=== PATIENT | male | born 1970 | race Caucasian/White ===

== ENCOUNTER 2021-05-02 14:41 | Emergency (ER) | payer BC, SELFPAY ==
--- NOTE | 2021-05-02 14:50 | XR_ITS ---
WS: [id number] Portable AP upright chest, 05/02/2021 Clinical Data: chest pain Comparison: None. Findings: No nodules, masses or effusions are seen. The heart is normal. The pulmonary vascularity is not increased. No pneumonia or pneumothorax is seen. There is a dextroscoliosis of the thoracic spin e. XR/XR chest 1V portable [id number] Impression: Negative chest.
--- NOTE | 2021-05-02 14:50 | ECG_ITS ---
[facility] Test Date: 2021-05-02 Pat Name: Yusef Ware Jr Department: Room: Gender: Male Marketing Admin: : 1970 Requested By: Charley Vigil Order Number: [id number] Rishi MD: Jayne Coyle M.D. Measurements Intervals [place] Rate: 105 P: 59 VA: 187 QRS: 81 QRSD: 106 T: 52 QT: 333 QTc: 441 Interpretive Statements SINUS TACHYCARDIA POSSIBLE LEFT ATRIAL ENLARGEMENT [-0.1mV P-WAVE IN V1/V2] ABNORMAL RHYTHM ECG No previous ECG available for comparison Electronically Signed On 05-02-2021 20:43:51 FILLING MACHINE OPERATOR by Jayne Coyle M.D. [id number]
[2021-05-02 14:52] VITALS: BP 121/86; PULSE 104; RESP 18; TEMP 36.8; O2SAT 100; BMI 27.1
[2021-05-02 17:43] VITALS: BP 143/98; PULSE 94; RESP 14; O2SAT 98
[2021-05-02 17:58] VITALS: BP 143/98; PULSE 91; O2SAT 96
[2021-05-02 18:04] LABS: Basophils % 0.2 %; Hematocrit 52.4 % (42.0-52.0); Hemoglobin 18.9 g/dL (11.7-16.6); Lymphocytes # 1.3 10^3/uL (0.8-4.8); Lymphocytes % 25.9 %; Mean Corpuscular HGB Conc 36.1 g/dL (30.0-36.0); Mean Corpuscular Hemoglobin 31.1 pg (28.0-34.0); Mean Corpuscular Volume 86.2 fl (80-94); Mean Platelet Volume 10.9 fL (7.4-10.4); Monocytes # 0.5 10^3/uL (0.2-0.9); Monocytes % 11.2 %; Neutrophils # 3.01 10^3/uL (1.8-7.7); Neutrophils % 62.5 %; Nucleated Red Blood Cells % 0 %; Platelet Count 175 10^3/cmm (130-400); Red Blood Count 6.08 10^6/uL (4.1-5.3); Red Cell Distribution Width 11.5 % (12.1-15.1); White Blood Count 4.8 10^3/uL (4.0-10.0)
--- NOTE | 2021-05-02 18:14 | W.ED.CHESTPA ---
HPI - Chest Pain General: Chief Complaint: Chest Pain Stated Complaint: CP RADIATING DOWN L ARM:SENT BY FEROZ FORTE Time Seen by Provider: 05/02/21 17:40 Source: patient Mode of arrival: ambulatory Limitations: no limitations History of Present Illness: HPI narrative: 50-year-old male who states that he has been having a sharp pain left side of his chest throughout the day he states it radiates down his left arm. He states he also has shingles to the left side of his chest recently he is unsure if this was causing his pain. No history of heart disease. States he does have some high blood pressure does not smoke no family history of heart disease denies any dyspnea denies any diaphoresis or nausea denies any worsening improving factors. Associated symptoms: Deny abdominal pain, dyspnea, fever(s), nausea or vomiting Review of Systems Const: Denies: fever(s), chills, body aches or change in appetite Eyes: Denies: blurry vision or eye discomfort ENMT: Denies: throat pain or dental pain Card: Reports: chest pain Resp: Denies: dyspnea GI: Denies: abdominal pain, nausea, vomiting or diarrhea : Denies: dysuria Musc: Denies: neck pain or back pain Skin/Breast: Denies: rash Neuro: Denies: headache(s) Psych: Denies: depression Rufino/Lymph: Denies: easy bruising All/Imm: Denies: urticaria PFSH ED PFSH: Medical History Diabetes Erectile dysfunction HTN (hypertension) Hypercholesterolemia Peyronie's disease Family History Father , AT AGE 46 Myocardial infarction Social History Smoking and tobacco status: never smoked Alcohol intake: never Marital status: Current occupational status: employed History of recent travel: No Physical Exam Const: COMMON NORMALS: no acute distress, patient oriented x3 and healthy appearing HENMT: COMMON NORMALS: normocephalic and atraumatic HEAD & SCALP: normocephalic and atraumatic Eye: COMMON NORMALS: Equal, round and reactive pupils present and EOMs intact bilaterally PUPIL: Yes Equal, round and reactive pupils present Neck/C-Spine: COMMON NORMALS: full ROM and supple Chest: OTHER: Shingles to left side of the chest Resp: COMMON NORMALS: normal respiratory effort, No retractions, No use of accessory muscles and clear to auscultation bilaterally AUSCULTATION: clear to auscultation bilaterally Cardio: COMMON NORMALS: regular rate, regular rhythm and No murmurs present (Cardio) RATE: regular rate RHYTHM: regular rhythm GI: COMMON NORMALS: Normal to inspection, nondistended, normoactive bowel sounds present, Soft to palpation, non-tender and no masses PALPATION: Yes Soft to palpation Extremity: COMMON NORMALS: normal to inspection and full ROM Neuro: COMMON NORMALS: patient oriented x3, moves all extremities and no focal motor deficits Psych: COMMON NORMALS: mental status grossly normal, Normal thought process present and cooperative THOUGHT PROCESS: Normal thought process present Skin: COMMON NORMALS: no rashes or lesions noted and no wounds GENERAL SKIN EXAM: no rashes or lesions noted Course Vital Signs: Vital signs: Vital Signs Temperature 98.2 F 05/02/21 14:52 Pulse Rate 91 05/02/21 17:58 Respiratory Rate 14 05/02/21 17:43 Blood Pressure 100/72 05/02/21 20:33 Pulse Oximetry 96 05/02/21 17:58 MDM - Chest Pain MDM Narrative: Medical decision making narrative: Patient presents here with chest pain atypical in nature he does have shingles to the left side of his chest could be causing his pain troponins and x-ray here are normal no signs of acute coronary syndrome or pulmonary embolism he is stable for discharge is to follow-up with PCP and return if worsening he understands agrees to plan. Lab Data: Labs: Lab Results 05/02/21 05/02/21 05/02/21 17:55 17:55 17:55 WBC 4.8 10^3/uL 10^3/ uL (4.0-10.0) RBC 6.08 10^6/uL H 10 ^6/uL (4.1-5.3) Hgb 18.9 g/dL H g/dL (11.7-16.6) Hct 52.4 % H % (42.0-52.0) MCV 86.2 fl fl (80-94) MCH 31.1 pg pg (28.0-34.0) MCHC 36.1 g/dL H g/dL (30.0-36.0) RDW 11.5 % L % (12.1-15.1) Plt Count 175 10^3/cmm 10^3 /cmm (130-400) MPV 10.9 fL H fL (7.4-10.4) Neut % (Auto) 62.5 % % Lymph % (Auto) 25.9 % % Elmore % (Auto) 11.2 % % Eos % (Auto) 0.0 % % Baso % (Auto) 0.2 % % Neut # (Auto) 3.01 10^3/uL 10^3 /uL (1.8-7.7) Lymph # (Auto) 1.3 10^3/uL 10^3/ uL (0.8-4.8) Elmore # (Auto) 0.5 10^3/uL 10^3/ uL (0.2-0.9) Eos # (Auto) 0.0 10^3/uL 10^3/ uL (0.0-0.8) Baso # (Auto) 0.0 10^3/uL 10^3/ uL (0.0-0.1) Nucleated RBC % (a uto) 0 % % Nucleated RBCs # 0.0 /100WBC /100W BC Sodium 133 mmol/L L mmol /L (136-145) Potassium 3.9 mmol/L mmol/L (3.5-5.1) Chloride 91 mmol/L L mmol/ L (98-107) Carbon Dioxide 26 mmol/L mmol/L (22-29) Anion Gap 19.9 H (5-19) BUN 16 mg/dL mg/dL (6-20) Creatinine 0.7 mg/dL mg/dL (0.7-1.2) GFR Calculation 120.4 mL/min mL/m in (90-130) Glucose 105 mg/dL mg/dL (65-115) Calculated Osmolal ity 278 mOsm/kg L mOs m/kg (285-295) Calcium 9.6 mg/dL mg/dL (8.5-10.5) Total Bilirubin 0.8 mg/dL mg/dL (0.15-1.2) AST 30 U/L U/L (0-40) ALT 30 U/L U/L (0-41) Alkaline Phosphata se 96 IU/L IU/L (40-130) Troponin T Baselin e 8 ng/L ng/L (0-15) Troponin T 120 [place] Delta Troponin T Total Protein 7.8 g/dL g/dL (6.6-8.7) Albumin 4.9 g/dL g/dL (3.5-5.2) Globulin 2.9 g/dL g/dL (1.3-4.6) 05/02/21 20:05 WBC RBC Hgb Hct MCV MCH MCHC RDW Plt Count MPV Neut % (Auto) Lymph % (Auto) [place] % (Auto) Eos % (Auto) Baso % (Auto) Neut # (Auto) Lymph # (Auto) [place] # (Auto) Eos # (Auto) Baso # (Auto) Nucleated RBC % (a uto) Nucleated RBCs # Sodium Potassium Chloride Carbon Dioxide Anion Gap BUN Creatinine GFR Calculation Glucose Calculated Osmolal ity Calcium Total Bilirubin AST ALT Alkaline Phosphata se Troponin T Baselin e Troponin T 120 [place] 7.17 ng/L ng/L (0-15) Delta Troponin T -0.83 ABS# L ABS# (0-10) Total Protein Albumin Globulin Imaging Data^: CXR: Attestation: I personally reviewed and interpreted this imaging study as follows: Radiologist's impression: [address] [address] XRay Report Signed Patient: Yusef Ware Jr Unit #: [id number] : 1970 Age/Sex: 50 / M ADM Date: 05/02/21 Loc: ER Room/Bed: Attending Dr: Ordering Provider/Ordering MD: Charley Vigil Date of Service: 05/02/21 Procedure(s): XR chest 1V portable [id number] Accession Number(s): [id number] Report Number: [id number] WS: [id number] Portable AP upright chest, 05/02/2021 Clinical Data: chest pain Comparison: None. Findings: No nodules, masses or effusions are seen. The heart is normal. The pulmonary vascularity is not increased. No pneumonia or pneumothorax is seen. There is a dextroscoliosis of the thoracic spine. XR/XR chest 1V portable [id number] Impression: Negative chest. Dictated By: Dara Sam MD Signed By: Dara Sam MD Signed Date/Time: 05/02/211517 DD/ 16 EKG Data^: EKG 1: Attestation: I personally reviewed and interpreted this EKG as follows: EKG interpretation date: 05/02/21 EKG interpretation time: 15:03 Interpretation: sinus tach hr [address] or t wave abnormalities qrs 106 qtc 394 EKG 2: Attestation: I personally reviewed and interpreted this EKG as follows: EKG interpretation date: 05/30/21 EKG interpretation time: 20:10 Interpretation: nsr hr [address] or t wave abnormalities qrs 94 qtc 406 Discharge Plan Discharge Patient Disposition: Home Clinical Impression: Shingles Chest pain Qualifiers: Chest pain type: unspecified Qualified Code(s): R07.9 - Chest pain, unspecified Condition: Stable Prescriptions: New hydrocodone-acetaminophen 5-325 mg tablet 1 tab PO Q6H PRN (Reason: pain) Qty: 14 RF: 0 No Action sildenafil 100 mg tablet 100 mg PO DAILY PRN (Reason: sexual activity) Qty: 20 RF: 12 pentoxifylline 400 mg tablet extended release 400 mg PO TID Qty: 90 RF: 12 metformin 500 mg tablet 1,000 mg PO BID RF: 0 simvastatin 40 mg tablet 40 mg PO DAILY RF: 0 Invokana 100 mg tablet 100 mg PO DAILY RF: 0 glyburide 5 mg tablet 5 mg PO DAILY RF: 0 lisinopril-hydrochlorothiazide 10-12.5 mg tablet 1 tab PO DAILY RF: 0 omega 2-ggx-lzl-fish oil [Fish Oil] 1,200 (144-216) mg capsule PO RF: 0 cinnamon bark [Cinnamon] 500 mg capsule 500 mg PO DAILY RF: 0 aspirin [Adult Aspirin Regimen] 81 mg tablet,delayed release (DR/EC) 81 mg PO DAILY RF: 0 Discharge Orders: Discharge ED (Routine); Ordered 05/02/21 Ordered By: Vijaya Carvajal Referrals: Dara Pepe FNP [Primary Care Provider] - 1-3 days Discharge Diet: Advance as tolerated Discharge Activity: Resume usual activity Patient Instructions: Chest Pain (ED), Opioid Safety Coding Level of Care Code ED Forest Firefighter for Chg Fwd Exam Comprehensive
[2021-05-02 18:26] LABS: Troponin(5th) Baseline 8 ng/L (0-15)
[2021-05-02 18:31] LABS: Alanine Aminotransferase 30 U/L (0-41); Albumin Level 4.9 g/dL (3.5-5.2); Alkaline Phosphatase 96 IU/L (40-130); Blood Urea Nitrogen 16 mg/dL (6-20); Calcium 9.6 mg/dL (8.5-10.5); Carbon Dioxide 26 mmol/L (22-29); Chloride 91 mmol/L (98-107); Globulin 2.9 g/dL (1.3-4.6); Glomerular Filtration Rate 120.4 mL/min (90-130); Glucose 105 mg/dL (65-115); Osmolality Calculated 278 mOsm/kg (285-295); Sodium 133 mmol/L (136-145); Total Bilirubin 0.8 mg/dL (0.15-1.2); Total Protein 7.8 g/dL (6.6-8.7)
[2021-05-02 18:36] LABS: Anion Gap 19.9 (5-19); Aspartate Amino Transferase 30 U/L (0-40); Potassium 3.9 mmol/L (3.5-5.1)
[2021-05-02 18:42] LABS: Slide Review Slide Review Perform
[2021-05-02 20:33] VITALS: BP 100/72
--- NOTE | 2021-05-02 20:50 | ECG_ITS ---
[facility] Test Date: 2021-05-02 Pat Name: Yusef Ware Jr Department: Room: Gender: Male Tableau Architect: : 1970 Requested By: Charley Vigil Order Number: [id number] Rishi MD: Jayne Coyle M.D. Measurements Intervals [place] Rate: 85 P: 54 AK: 203 QRS: 76 QRSD: 94 T: 49 QT: 364 QTc: 434 Interpretive Statements SINUS RHYTHM Compared to ECG 05/02/2021 15:03:18 Sinus tachycardia no longer present Electronically Signed On 05-02-2021 20:52:11 BACCARAT MANAGER by Jayne Coyle M.D. [id number] f
[2021-05-02 21:01] LABS: Troponin 5 2HR 7.17 ng/L (0-15); Troponin 5 2HR Delta -0.83 ABS# (0-10)
[2021-05-02 21:31] VITALS: BP 100/72; PULSE 80; RESP 14; O2SAT 98
== END 2021-05-02 21:42 | disposition home or self-care (01) ==
PROVIDERS: Physician Assistant; Emergency Provider Emergency Medicine; PCP Nurse Practitioner Family
DX: R07.9 Chest pain, unspecified (principal); B02.9 Zoster without complications; E11.9 Type 2 diabetes mellitus without complications; I10 Essential (primary) hypertension; E78.00 Pure hypercholesterolemia, unspecified
CPT/HCPCS: 71045; 80053; 84484; 85025; 93005; 99284

== ENCOUNTER 2021-06-13 08:53 | Outpatient (CLI) | payer BC, SELFPAY ==
[2021-06-13 09:46] VITALS: BMI 27.3
--- NOTE | 2021-06-13 09:49 | ECG_ITS ---
[facility] Test Date: 2021-06-13 Pat Name: Yusef Ware Jr Department: Room: Gender: Male Creative Art Director: Rafaela Smith : 1970 Requested By: Dara Pepe Order Number: [id number] Risih MD: Bj Marks M.D. Interpretive Statements NAME OF STUDY: LEXISCAN SESTAMIBI STRESS TEST INDICATION: [strong family histroy of cad, ] Procedure: At the baseline, the blood pressure was 123/83 mmHg with a heart rate of 65 bpm. The electrocardiogram showed normal sinus rhythm, normal axis with normal ST and T's. The Lexiscan was infused over a period of 20 seconds. A total of 0.4 mg of Lexiscan was infused. The stress phase was continued for a total of 5 minutes. Heart rate was at the end of stress phase was 81 bpm and a blood pressure of 117/75 mmHg. The EKG at the peak infusion revealed since normal sinus rhythm with no significant ST-T wave changes. Sestamibi was injected 20 seconds after the Lexiscan infusion. Blood pressure at the end of recovery phase was 114/76 mmHg with a heart rate of 79 bpm. Conclusion: 1. Normal EKG response to Lexiscan infusion 2. No Lexiscan induced chest pain or cardiac arrhythmia. 3. Normal blood pressure and heart rate response. 4. Sestamibi/sestamibi perfusion scan pending; see separate report. Electronically Signed On 06-16-2021 12:54:59 SHIPSMITH by Bj Marks M.D. [id number]
--- NOTE | 2021-06-13 09:50 | NMCV_ITS ---
NM kelvin perf SPECT r/s* [id number] Yusef Ware Jr Age: 50 Gender: M : 1970 Exam Date: 06/13/2021 09:50 Ordering Phys: Dara PepeP RECEIVER DISPATCHER Technologist: CLOVER Farley Exam Location: [facility] Indications: HISTORY OF CAD STRESS TEST Please see separate stress test report in [facility] for full findings IMAGE PROTOCOL Rest/Stress 1 Lexiscan Day Radiopharmaceutical Dose (mCi) Administration Site Administered by Rest: Tc-99m 11.0 IV CLOVER Choudhary Sestamibi Stress:Tc-99m 32.8 IV CLOVER Choudhary Sestamibi Rest: 13-Jun-2021 60 Discovery 630 Stress: 13-Jun-2021 30 Discovery 630 0.4mg Lexiscan. Images obtained in supine and prone position. SPECT RESULTS Technical Quality: Uninterpretable Raw Data Analysis: Normal Image Corrections: No attenuation or motion correction applied Summed Stress Score: 0 Summed Rest Score: 0 Summed Difference Score: 0 PERFUSION FINDINGS SPECT images demonstrate homogeneous tracer distribution throughout the myocardium. FUNCTIONAL RESULTS (calculated via Gated SPECT) Stress Image LV EF (%): 60 Stress EDV (mL):115 TID: 0.96 Stress ESV (mL):46 FUNCTIONAL FINDINGS: There is normal left ventricular systolic function. IMPRESSIONS 1. Normal myocardial perfusion imaging with no evidence of ischemia 2. LV systolic function is normal Bj Marks MD (Electronically Signed) Final Date: 17 June 2021 17:47 S
[2021-06-13] MEDS: regadenoson 0.4 Mg/5 ml Syringe IVP (11:37)
[2021-06-13 11:38] VITALS: BP 114/76; PULSE 78
== END 2021-06-13 08:54 | disposition home or self-care (01) ==
LOC: CDL 08:56
PROVIDERS: PCP Nurse Practitioner Family; Visit Provider Nurse Practitioner Family
DX: I25.10 Atherosclerotic heart disease of native coronary artery without angina pectoris (principal)
CPT/HCPCS: 78452; 93017; A9500; J2785

== ENCOUNTER → 2021-12-31 15:57 | Outpatient (BNVA) | payer BC, SELFPAY | PROVIDERS: PCP Nurse Practitioner Family; Visit Provider Urology | DX: N52.9 Male erectile dysfunction, unspecified (principal); N52.1 Erectile dysfunction due to diseases classified elsewhere; N48.6 Induration penis plastica | CPT/HCPCS: 81003 ==

== ENCOUNTER 2023-08-13 11:29 | Outpatient (RCR) | payer BC, SELFPAY | END 2023-08-21 23:59 | disposition home or self-care (01) | LOC: SPT 11:29 | PROVIDERS: PCP Nurse Practitioner Family; Visit Provider Physician Assistant Surgical | DX: S52.92XD Unspecified fracture of left forearm, subsequent encounter for closed fracture with routine healing (principal); S32.009D Unspecified fracture of unspecified lumbar vertebra, subsequent encounter for fracture with routine healing; S06.0XAD Concussion with loss of consciousness status unknown, subsequent encounter; X58.XXXD Exposure to other specified factors, subsequent encounter | CPT/HCPCS: 97110; 97161 ==

== ENCOUNTER 2023-08-13 11:38 | Outpatient (RCR) | payer BC, SELFPAY | END 2023-08-21 23:59 | disposition home or self-care (01) | LOC: SOT 11:38 | PROVIDERS: PCP Nurse Practitioner Family; Visit Provider Physician Assistant Surgical | DX: S32.9XXD Fracture of unspecified parts of lumbosacral spine and pelvis, subsequent encounter for fracture with routine healing (principal); S06.0XAD Concussion with loss of consciousness status unknown, subsequent encounter; S52.92XD Unspecified fracture of left forearm, subsequent encounter for closed fracture with routine healing; S52.202D Unspecified fracture of shaft of left ulna, subsequent encounter for closed fracture with routine healing; X58.XXXD Exposure to other specified factors, subsequent encounter | CPT/HCPCS: 97110; 97166; 97530 ==

== ENCOUNTER 2023-08-13 11:40 | Outpatient (RCR) | payer BC, SELFPAY | END 2023-08-21 23:59 | disposition home or self-care (01) | LOC: SST 11:40 | PROVIDERS: PCP Nurse Practitioner Family; Visit Provider Physician Assistant Surgical | DX: S06.0XAD Concussion with loss of consciousness status unknown, subsequent encounter (principal); X58.XXXD Exposure to other specified factors, subsequent encounter | CPT/HCPCS: 92507 ==

== ENCOUNTER 2023-08-22 06:00 | Outpatient (RCR) | payer BC, SELFPAY | END 2023-09-21 23:59 | disposition home or self-care (01) | LOC: SPT 06:00 | PROVIDERS: PCP Nurse Practitioner Family; Visit Provider Physician Assistant Surgical | DX: S52.92XD Unspecified fracture of left forearm, subsequent encounter for closed fracture with routine healing (principal); S06.0XAD Concussion with loss of consciousness status unknown, subsequent encounter; S32.9XXD Fracture of unspecified parts of lumbosacral spine and pelvis, subsequent encounter for fracture with routine healing; X58.XXXD Exposure to other specified factors, subsequent encounter | CPT/HCPCS: 97110 ==

== ENCOUNTER 2023-09-22 06:00 | Outpatient (RCR) | payer BC, SELFPAY | END 2023-10-21 23:59 | disposition home or self-care (01) | LOC: SPT 06:00 | PROVIDERS: PCP Nurse Practitioner Family; Visit Provider Physician Assistant Surgical | DX: S52.92XD Unspecified fracture of left forearm, subsequent encounter for closed fracture with routine healing (principal); S06.0XAD Concussion with loss of consciousness status unknown, subsequent encounter; S32.9XXD Fracture of unspecified parts of lumbosacral spine and pelvis, subsequent encounter for fracture with routine healing; X58.XXXD Exposure to other specified factors, subsequent encounter | CPT/HCPCS: 97110 ==

== ENCOUNTER 2023-10-22 06:00 | Outpatient (RCR) | payer BC, SELFPAY | END 2023-11-21 23:59 | disposition home or self-care (01) | LOC: SPT 06:00 | PROVIDERS: PCP Nurse Practitioner Family; Visit Provider Physician Assistant Surgical | DX: S52.92XD Unspecified fracture of left forearm, subsequent encounter for closed fracture with routine healing (principal); S06.0XAD Concussion with loss of consciousness status unknown, subsequent encounter; S32.9XXD Fracture of unspecified parts of lumbosacral spine and pelvis, subsequent encounter for fracture with routine healing; X58.XXXD Exposure to other specified factors, subsequent encounter | CPT/HCPCS: 97110 ==

== ENCOUNTER 2023-10-30 15:33 | Emergency (ER) | payer BC, MEDICAID, SELFPAY ==
--- NOTE | 2023-10-30 15:36 | USR_ITS ---
PROCEDURE INFORMATION: Exam: US Duplex Left Lower Extremity Veins, Limited Exam date and time: 10/30/2023 4:23 PM Age: 52 years old Clinical indication: Pain; Leg, lower; Left; Prior surgery; Surgery date: <1 month; Surgery type: Unknown; Additional info: Leg pain, concern for dvt TECHNIQUE: Imaging protocol: Real-time duplex ultrasound of the left extremity with 2-D foremna scale, color Doppler flow and spectral waveform analysis including responses to compression and other maneuvers (when performed) with image documentation. Limited exam focused on the left lower extremity veins. COMPARISON: No relevant prior studies available. FINDINGS: Left deep veins: Unremarkable. The common femoral, femoral, proximal profunda femoral, popliteal, posterior tibial and peroneal veins are patent without thrombus. Normal compressibility, augmentation response and Doppler waveforms. Superficial veins: Greater saphenous vein at the saphenofemoral junction is patent without thrombus. Soft tissues: Unremarkable. US/CV venous duplex [facility] [id number] IMPRESSION: No sonographic evidence of deep vein thrombosis.
[2023-10-30 15:37] VITALS: BP 100/79; PULSE 100; RESP 18; TEMP 36.7; O2SAT 98; BMI 19.3
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
== END 2023-10-30 17:42 | disposition home or self-care (01) ==
PROVIDERS: Emergency Provider Emergency Medicine; PCP Nurse Practitioner Family
DX: M79.89 Other specified soft tissue disorders (principal); Z79.82 Long term (current) use of aspirin; Z79.84 Long term (current) use of oral hypoglycemic drugs; E11.9 Type 2 diabetes mellitus without complications; I10 Essential (primary) hypertension
CPT/HCPCS: 93971; 99284

== ENCOUNTER 2023-11-22 06:00 | Outpatient (RCR) | payer BC, SELFPAY | END 2023-12-21 23:59 | disposition home or self-care (01) | LOC: SPT 06:00 | PROVIDERS: PCP Nurse Practitioner Family; Visit Provider Physician Assistant Surgical | DX: S52.92XD Unspecified fracture of left forearm, subsequent encounter for closed fracture with routine healing (principal); S06.0XAD Concussion with loss of consciousness status unknown, subsequent encounter; S32.9XXD Fracture of unspecified parts of lumbosacral spine and pelvis, subsequent encounter for fracture with routine healing; X58.XXXD Exposure to other specified factors, subsequent encounter | CPT/HCPCS: 97110 ==

== ENCOUNTER 2023-12-22 06:00 | Outpatient (RCR) | payer BC, MEDICAID, SELFPAY | END 2024-01-21 23:59 | disposition home or self-care (01) | LOC: SPT 06:00 | PROVIDERS: PCP Nurse Practitioner Family; Visit Provider Physician Assistant Surgical | DX: S52.92XD Unspecified fracture of left forearm, subsequent encounter for closed fracture with routine healing (principal); S06.0XAD Concussion with loss of consciousness status unknown, subsequent encounter; S32.9XXD Fracture of unspecified parts of lumbosacral spine and pelvis, subsequent encounter for fracture with routine healing; X58.XXXD Exposure to other specified factors, subsequent encounter | CPT/HCPCS: 97110 ==

== ENCOUNTER 2024-01-22 06:00 | Outpatient (RCR) | payer BC, MEDICAID, SELFPAY | END 2024-02-21 23:59 | disposition home or self-care (01) | LOC: SPT 06:00 | PROVIDERS: PCP Nurse Practitioner Family; Visit Provider Physician Assistant Surgical | DX: S52.92XD Unspecified fracture of left forearm, subsequent encounter for closed fracture with routine healing (principal); S06.0XAD Concussion with loss of consciousness status unknown, subsequent encounter; S32.9XXD Fracture of unspecified parts of lumbosacral spine and pelvis, subsequent encounter for fracture with routine healing; X58.XXXD Exposure to other specified factors, subsequent encounter | CPT/HCPCS: 97110 ==